=== PATIENT | female | born 1990 | race Two or more races ===

== ENCOUNTER 2017-02-07 14:05 | Emergency (ER) | payer MEDICAID ==
[~2017-02-07] VITALS: Ht 162.6 cm; Wt 89.0 kg
[2017-02-07 14:06] VITALS: BP 123/80
[2017-02-07] MEDS ORDERED: PREN1TAB60 PO (15:00)
== END 2017-02-07 16:50 | disposition home or self-care (01) ==
LOC: ED 16:37
DX: O23.11 Infections of bladder in pregnancy, first trimester (principal); R31.9 Hematuria, unspecified; Z3A.01 Less than 8 weeks gestation of pregnancy
CPT/HCPCS: 36415; 76801; 81001; 84702; 87077; 87086; 87186; 99285

== ENCOUNTER 2017-08-25 20:57 | Observation (INO) | payer MEDICAID ==
[~2017-08-25] VITALS: Ht 162.6 cm; Wt 99.1 kg
[~2017-08-25 20:57] MED LIST: PREN1TAB60 PO
[2017-08-25 21:00] VITALS: BP 128/84
[2017-08-25 21:21] LABS: MICROSCOPIC NOT IND
[2017-08-25] MEDS ORDERED: TERBUTALINE 1 MG/ML, 1ML ONE (21:28)
[2017-08-25] MEDS ORDERED: TERBUTALINE 1 MG/ML, 1ML SQ ONE (21:30)
[2017-08-25] MEDS ORDERED: LACTATED RINGERS 1,000 ML IV SCH (23:30)
== END 2017-08-26 01:29 | disposition home or self-care (01) ==
LOC: LDOP 20:57 → LDIP 23:09
PROVIDERS: ADMIT Obstetrics & Gynecology; ATTEND Obstetrics & Gynecology
DX: O26.893 Other specified pregnancy related conditions, third trimester (principal); R10.9 Unspecified abdominal pain; Z3A.35 35 weeks gestation of pregnancy
CPT/HCPCS: 59025; 81003; 87086; 96360; 96361; 96372; G0378; J3105; J7120

== ENCOUNTER 2017-08-26 12:14 | Inpatient (IN) | payer MEDICAID ==
[~2017-08-26] VITALS: Ht 162.6 cm; Wt 99.5 kg
[2017-08-26 12:43] VITALS: BP 129/81
[2017-08-26] MEDS ORDERED: OXYTOCIN 30U/ 0.9% NaCL 500ML 500 ML IV SCH (13:11)
[2017-08-26] MEDS ORDERED: LACTATED RINGERS 1,000 ML IV SCH ×3 (13:11→16:41)
[2017-08-26] MEDS ORDERED: LACTATED RINGERS 1,000 ML IVBOLUS ONE (13:30)
[2017-08-26] MEDS ORDERED: METOCLOPRAMIDE 5 MG/ML, 2ML IV ONE (13:30)
[2017-08-26] MEDS ORDERED: SODIUM CITRATE/CITRIC ACID 30 ML UDC PO ONE (13:30)
[2017-08-26] MEDS ORDERED: OXYTOCIN 30U/ 0.9% NaCL 500ML 500 ML ONE (13:38)
[2017-08-26] MEDS ORDERED: METOCLOPRAMIDE 5 MG/ML, 2ML ONE (13:38)
[2017-08-26] MEDS ORDERED: SODIUM CITRATE/CITRIC ACID 30 ML UDC ONE (13:38)
[2017-08-26] MEDS ORDERED: NEWBORN KIT ONE (13:38)
[2017-08-26] MEDS ORDERED: MISOPROSTOL 200 MCG TABLET ONE (13:38)
[2017-08-26 13:43] LABS: BASOPHILS # (AUTO) 0.04 x10^3/uL (0-0.1); BASOPHILS % (AUTO) 0 % (0-1); EOSINOPHILS # (AUTO) 0.08 x10^3/uL (0-0.4); EOSINOPHILS % (AUTO) 1 % (1-7); LYMPHOCYTES # (AUTO) 1.79 x10^3/uL (1-3.4); LYMPHOCYTES % (AUTO) 16 % (22-44); MD NO; MEAN CORPUSCULAR HEMOGLOBIN 28.7 pg (27.0-34.8); MEAN CORPUSCULAR HGB CONC 33.3 g/dL (32.4-35.8); MEAN CORPUSCULAR VOLUME 86.2 fL (80-100); MEAN PLATELET VOLUME 7.6 fL (7.4-10.4); MONOCYTES # (AUTO) 0.59 x10^3/uL (0.2-0.8); MONOCYTES % (AUTO) 5 % (2-9); NEUTROPHILS # (AUTO) 8.84 x10^3/uL (1.8-6.8); NEUTROPHILS % (AUTO) 78 % (42-75); PLATELET COUNT 228 x10^3/uL (130-400); RED BLOOD COUNT 4.64 x10^6/uL (3.82-5.3); RED CELL DISTRIBUTION WIDTH 14.7 % (9.6-15.2)
[2017-08-26] MEDS ORDERED: OXYcodone 5 MG/5 ML ORAL.SOL UDC PO PRN (15:00)
[2017-08-26] MEDS ORDERED: PROMETHAZINE 25 MG/ML, 1ML IM PRN (15:00)
[2017-08-26] MEDS ORDERED: MEPERIDINE/PF 25MG/0.5ML IVPush PRN (15:00)
[2017-08-26] MEDS ORDERED: MORPHINE SULFATE 4 MG/ML, 1ML IVPush PRN (15:00)
[2017-08-26] MEDS ORDERED: EPHEDRINE 50 MG/ML, 1ML IVPush PRN (15:00)
[2017-08-26] MEDS ORDERED: FENTANYL PF 100 MCG/2ML IV PRN (15:00)
[2017-08-26] MEDS ORDERED: ONDANSETRON ODT 8 MG PO PRN (15:00)
[2017-08-26] MEDS: KETOROLAC 30 MG/1 ML IM SCH ×2 (16:00→22:32)
[2017-08-26] MEDS ORDERED: AZITHROMYCIN 1,000 MG in SODIUM CHLORIDE 0.9% 250 ML IV ONE (16:00)
[2017-08-26] MEDS ORDERED: EPINEPHRINE 1 MG/ML, 1ML ONE (16:12)
[2017-08-26] MEDS ORDERED: CEFAZOLIN 1,000 MG ONE (16:12)
[2017-08-26] MEDS ORDERED: EPHEDRINE 50 MG/ML, 1ML ONE (16:12)
[2017-08-26] MEDS ORDERED: OXYTOCIN 10 UNITS/ML, 1ML ONE (16:12)
[2017-08-26] MEDS ORDERED: KETOROLAC 30 MG/1 ML ONE (16:25)
[2017-08-26] MEDS: OXYTOCIN 30U/ 0.9% NaCL 500ML 500 ML IV SCH (16:41)
[2017-08-26] MEDS: LACTATED RINGERS 1,000 ML IV SCH (16:41)
[2017-08-26] MEDS ORDERED: MISOPROSTOL 200 MCG TABLET PR PRN (17:00)
[2017-08-26] MEDS ORDERED: morphine SULFATE 10 MG/ML, 1ML IVPush PRN ×2 (17:00)
[2017-08-26] MEDS ORDERED: METOCLOPRAMIDE 5 MG/ML, 2ML IV PRN (17:00)
[2017-08-26] MEDS ORDERED: SIMETHICONE 80 MG CHEW TAB PO PRN (17:00)
[2017-08-26] MEDS ORDERED: ONDANSETRON 2MG/ML, 2ML IV PRN (17:00)
[2017-08-26] MEDS ORDERED: METHYLERGONOVINE 0.2 MG/ML IM PRN (17:00)
[2017-08-26] MEDS ORDERED: morphine SULFATE 10 MG/ML, 1ML ONE (17:38)
[2017-08-26] MEDS ORDERED: OXYcodone 5 MG/5 ML ORAL.SOL UDC ONE (18:57)
[2017-08-26 19:45] VITALS: BP 106/68
[2017-08-26] MEDS: KETOROLAC 30 MG/1 ML IV SCH (23:00)
[2017-08-26] MEDS: OXYcodone/APAP 5/325MG TABLET PO PRN (23:45)
[2017-08-27 00:05] VITALS: BP 98/56
[2017-08-27] MEDS: LACTATED RINGERS 1,000 ML IV SCH ×3 (00:41→16:41)
[2017-08-27 00:59] LABS: BASOPHILS # (AUTO) 0.03 x10^3/uL (0-0.1); BASOPHILS % (AUTO) 0 % (0-1); EOSINOPHILS # (AUTO) 0.01 x10^3/uL (0-0.4); EOSINOPHILS % (AUTO) 0 % (1-7); LYMPHOCYTES # (AUTO) 1.54 x10^3/uL (1-3.4); LYMPHOCYTES % (AUTO) 11 % (22-44); MD NO; MEAN CORPUSCULAR HEMOGLOBIN 29.3 pg (27.0-34.8); MEAN CORPUSCULAR HGB CONC 33.6 g/dL (32.4-35.8); MEAN CORPUSCULAR VOLUME 87.1 fL (80-100); MEAN PLATELET VOLUME 7.9 fL (7.4-10.4); MONOCYTES # (AUTO) 0.77 x10^3/uL (0.2-0.8); MONOCYTES % (AUTO) 6 % (2-9); NEUTROPHILS # (AUTO) 11.38 x10^3/uL (1.8-6.8); NEUTROPHILS % (AUTO) 83 % (42-75); PLATELET COUNT 196 x10^3/uL (130-400); RED BLOOD COUNT 4.13 x10^6/uL (3.82-5.3); RED CELL DISTRIBUTION WIDTH 14.6 % (9.6-15.2)
[2017-08-27] MEDS: OXYTOCIN 30U/ 0.9% NaCL 500ML 500 ML IV SCH ×3 (02:41→22:41)
[2017-08-27] MEDS: OXYcodone/APAP 5/325MG TABLET PO PRN ×3 (04:02→16:21)
[2017-08-27 04:05] VITALS: BP 100/64
[2017-08-27] MEDS: KETOROLAC 30 MG/1 ML IV SCH ×4 (04:40→23:03)
[2017-08-27 06:45] VITALS: BP 95/61
[2017-08-27] MEDS ORDERED: ONDANSETRON ODT 4 MG ONE (08:07)
[2017-08-27] MEDS: DOCUSATE 100 MG CAPSULE PO PRN ×2 (08:09→23:03)
[2017-08-27] MEDS ORDERED: ONDANSETRON ODT 4 MG PO PRN (08:30)
[2017-08-27] MEDS: PRENATAL VIT/IRON/FA 1 EACH TABLET PO SCH (09:00)
[2017-08-27 12:00] VITALS: BP 110/80
[2017-08-27] MEDS ORDERED: ACETAMINOPHEN 325 MG TABLET ONE (14:53)
[2017-08-27] MEDS ORDERED: ACETAMINOPHEN 325 MG TABLET PO PRN (15:00)
[2017-08-27 21:35] VITALS: BP 98/63
[2017-08-28] MEDS: OXYcodone/APAP 5/325MG TABLET PO PRN ×5 (00:28→20:15)
[2017-08-28] MEDS: LACTATED RINGERS 1,000 ML IV SCH ×3 (00:41→16:41)
[2017-08-28] MEDS: KETOROLAC 30 MG/1 ML IV SCH ×2 (04:49→11:13)
[2017-08-28] MEDS: DOCUSATE 100 MG CAPSULE PO PRN ×2 (07:23→20:15)
[2017-08-28] MEDS: PRENATAL VIT/IRON/FA 1 EACH TABLET PO SCH (07:23)
[2017-08-28 07:25] VITALS: BP 99/64
[2017-08-28] MEDS: OXYTOCIN 30U/ 0.9% NaCL 500ML 500 ML IV SCH ×2 (08:41→18:41)
[2017-08-28 19:20] VITALS: BP 106/71
[2017-08-28] MEDS: IBUPROFEN 600 MG TABLET PO PRN (20:15)
[2017-08-29] MEDS: LACTATED RINGERS 1,000 ML IV SCH ×2 (00:41→08:41)
[2017-08-29] MEDS: OXYcodone/APAP 5/325MG TABLET PO PRN ×3 (00:49→12:50)
[2017-08-29] MEDS: IBUPROFEN 600 MG TABLET PO PRN ×2 (02:12→09:06)
[2017-08-29] MEDS: OXYTOCIN 30U/ 0.9% NaCL 500ML 500 ML IV SCH (04:41)
[2017-08-29 07:50] VITALS: BP 111/77
[2017-08-29] MEDS: PRENATAL VIT/IRON/FA 1 EACH TABLET PO SCH (09:06)
[2017-08-29] MEDS: DOCUSATE 100 MG CAPSULE PO PRN (09:06)
[2017-08-29] MEDS ORDERED: DOCU-131 PO (11:11)
[2017-08-29] MEDS ORDERED: OXYC-302 PO (11:11)
[2017-08-29] MEDS ORDERED: IBUP-1222 PO (11:11)
== END 2017-08-29 13:24 | disposition home or self-care (01) | DRG 766 ==
LOC: LDOP 12:14 → LDIP 13:16 → 2NW 19:41
PROVIDERS: ADMIT Obstetrics & Gynecology; ATTEND Obstetrics & Gynecology
PROC: 10D00Z1 Extraction of Products of Conception, Low, Open Approach (ICD-10-PCS; principal; 2017-08-26)
PROC: 0DNW0ZZ Release Peritoneum, Open Approach (ICD-10-PCS; 2017-08-26)
PROC: 3E0P05Z Introduction of Adhesion Barrier into Female Reproductive, Open Approach (ICD-10-PCS; 2017-08-26)
DX: O34.211 Maternal care for low transverse scar from previous cesarean delivery (principal); Z37.0 Single live birth; O99.89 Other specified diseases and conditions complicating pregnancy, childbirth and the puerperium; N73.6 Female pelvic peritoneal adhesions (postinfective); O42.913 Preterm premature rupture of membranes, unspecified as to length of time between rupture and onset of labor, third trimester; O69.81X0 Labor and delivery complicated by cord around neck, without compression, not applicable or unspecified
CPT/HCPCS: 36415; 82803; 84112; 85025; 86850; 86900; 86923; 89060; J0171; J0690; J1885; Q0162; J2270; J2590; J2765; J7120; Q0114